=== PATIENT | male | born 1995 | race Caucasian/White ===

== ENCOUNTER 2021-10-13 21:05 | Outpatient (REF) | payer BC, SELFPAY ==
[2021-10-13 22:12] LABS: Abs Immature Grans 0.02 10^3/uL (0.0-0.06); Absolute Basophil Count 0.02 10^3/uL (0.0-0.2); Absolute Eosinophil Count 0.13 10^3/uL (0.0-0.7); Absolute Monocyte Count 1.16 10^3/uL (0.1-0.8); Absolute Neutrophil Count 4.24 10^3/uL (1.2-6.7); Basophils % 0.3; Eosinophils % 2.1; HCT 44.2 % (40.0-50.0); HGB 15.4 g/dL (13.5-17.5); Immature Grans % 0.3; Lymphocytes % 9.7; MCH 30.4 pg (27.0-33.0); MCHC 34.8 % (32.0-36.0); MCV 87.2 fL (80-95); MPV 11.7 fL (8.0-11.0); Monocytes % 18.8; Neutrophils % 68.8; Nucleated RBC 0 %; Platelet Count 192 10^3/uL (130-400); RBC 5.07 10^6/uL (4.36-5.78); RDW 12.1 % (11.8-14.1); RDW-SD 38.6 fL; WBC 6.17 10^3/uL (4.4-10.8)
[2021-10-13 22:25] LABS: ALT 26 U/L (16-63); AST 24 U/L (15-37); Alkaline Phosphatase 85 U/L (46-116); Anion Gap 13.7 mmol/L (3-11); BUN 8 mg/dL (7-18); Bilirubin, Total 0.7 mg/dL (0.2-1.0); CO2 22.3 mmol/L (21.0-32.0); CREATININE 0.9 mg/dL (0.70-1.30); Chloride 99 mmol/L (98-107); Glucose 117 mg/dL (74-106); Sodium 135 mmol/L (136-145); Total Protein 7.3 g/dL (6.4-8.2)
[2021-10-13 22:30] LABS: PROTEIN 43.1 mg/dL (0.0-11.9)
[2021-10-13 22:35] LABS: Bacteria Negative HPF (Negative); C & S Indicated? Yes; Casts Negative LPF (Negative); Crystals Negative HPF (Negative); Epithelial Cells Negative HPF (Negative); Mucus Negative (Negative); Other Cells Negative (Negative); RBC >50 HPF (0-2)
[2021-10-18 12:31] LABS: Anti-DNase B Titer <75 U/mL (0 - 300); Antistrep-O Titer 71 IU/mL (0 - 530)
== END 2021-10-13 21:06 | disposition home or self-care (01) ==
LOC: NCHCN 21:05
PROVIDERS: Visit Provider Nurse Practitioner Family
DX: R50.9 Fever, unspecified (principal); G44.89 Other headache syndrome; R39.9 Unspecified symptoms and signs involving the genitourinary system
CPT/HCPCS: 80053; 81015; 84156; 85025; 86060; 86215; 87086

== ENCOUNTER 2021-10-15 15:24 | Outpatient (REF) | payer BC, SELFPAY ==
[2021-10-15 21:26] LABS: Creatinine,Urine 46.74 mg/dL
[2021-10-15 21:30] LABS: Anion Gap 7.8 mmol/L (3-11); BUN 10 mg/dL (7-18); CO2 28.2 mmol/L (21.0-32.0); CREATININE 0.8 mg/dL (0.70-1.30); Calcium 8.8 mg/dL (8.5-10.1); Chloride 102 mmol/L (98-107); Glucose 109 mg/dL (74-106); Potassium 4.1 mmol/L (3.5-5.1); Sodium 138 mmol/L (136-145)
[2021-10-15 21:36] LABS: COMMENT (LAB VIEW ONLY) 46.54 mg/dL
[2021-10-15 21:39] LABS: Microalb ug/mg Crea 659.9 ug/mg Cr
== END 2021-10-15 15:25 | disposition home or self-care (01) ==
LOC: NCHCN 15:24
PROVIDERS: Visit Provider Family Medicine
DX: R31.0 Gross hematuria (principal); R50.9 Fever, unspecified; R39.9 Unspecified symptoms and signs involving the genitourinary system; G44.89 Other headache syndrome
CPT/HCPCS: 80048; 82043; 82565; 82570

== ENCOUNTER 2021-10-18 17:10 | Outpatient (REF) | payer BC, SELFPAY ==
--- OUTSIDE RECORDS SUMMARY | 2021-10-18 17:12 | XMS_ITS | CCD ---
:1995 Author Care Team Providers Name Role Phone July MENDEZ Attending Physician Unavailable Vital Signs Unknown or Not Available. Allergies Unknown or Not Available. Procedures Unknown or Not Available. History of Immunizations Unknown or Not Available. Problems Unknown or Not Available. Results [facility] COVID RHEONIX* - Collect Date/Julio e: 07/07/2021 10:51 Test Name Code Test Result Test Units Test Ref Range SOURCE= Anterior nasal N/A Tier- SYMPTOMS N/A SARS COV2 RNA: 28098-1 NEGATIVE N/A REFERENCE RAN GE: NEGAT Active Medications Unknown or Not Available. Medications Administered During Visit Unknown or Not Available. Encounters Encounter Diagnosis Diagnosis Code Start Date CONTACT WITH AND SUSPECTED EXPOSURE TO COVID-19 [id number] 07/07/2021 Social History Smoking Status Code Start Date End Date Never smoker [id number] Patient Decision Aids Unknown or Not Available. Discharge Instructions You were admitted to [facility] on 07/07/2021 09:23 with a principal diagnosis of Contact with and (suspected ) exposure to COVID-19 You had the following tests done: [facility] COVID RHEONIX* You were discharged from [facility] on 07/07/2021 09:23 Should you have any questions prior to d ischarge, please contact a member of your healthcare team. If you have left the ho spital and have any questions, please contact your primary care physician. Chief Complaint and Reason For Visit Unknown or Not Available. Function Status Unknown or Not Available. Plan of Care Unknown or Not Available. Referral/Transition of Care Unknown or Not Available.
[2021-10-18 21:44] LABS: Anion Gap 8.2 mmol/L (3-11); BUN 12 mg/dL (7-18); CO2 28.8 mmol/L (21.0-32.0); CREATININE 0.7 mg/dL (0.70-1.30); Calcium 8.7 mg/dL (8.5-10.1); Chloride 102 mmol/L (98-107); Glucose 92 mg/dL (74-106); Sodium 139 mmol/L (136-145)
[2021-10-18 21:48] LABS: Bacteria Negative HPF (Negative); Crystals Negative HPF (Negative); Epithelial Cells Few HPF (Negative); WBC 0-2 HPF (0-5)
[2021-10-18 21:49] LABS: C & S Indicated? No; Casts Negative LPF (Negative); Mucus Trace (Negative)
== END 2021-10-18 17:11 | disposition home or self-care (01) ==
LOC: NCHCN 17:10
PROVIDERS: Visit Provider Family Medicine
DX: G44.89 Other headache syndrome (principal); R31.0 Gross hematuria
CPT/HCPCS: 80048; 81015

== ENCOUNTER 2021-11-03 09:18 | Outpatient (REF) | payer BC, SELFPAY ==
[2021-11-03 16:28] LABS: COMMENT (LAB VIEW ONLY) 27.13 mg/dL; PROTEIN 10.3 mg/dL; Prot/Crea Ur Ratio 0.37
== END 2021-11-03 09:19 | disposition home or self-care (01) ==
LOC: NCHCN 09:18
PROVIDERS: Visit Provider Family Medicine
DX: R31.0 Gross hematuria (principal)
CPT/HCPCS: 82565; 84156

== ENCOUNTER 2021-12-06 08:14 | Outpatient (REF) | payer BC, SELFPAY ==
[2021-12-06 15:59] LABS: Bilirubin Negative (Negative); Blood Small (Negative); Clarity Clear (Clear); Glucose Negative (Negative); Ketones Negative (Negative); Leukocyte Esterase Negative (Negative); Nitrite Negative (Negative); Urobilinogen 0.2 EU/dL (Up TO 0.2); pH 6.5 (5-8)
[2021-12-06 16:58] LABS: PROTEIN < 6.0 mg/dL
[2021-12-06 17:03] LABS: COMMENT (LAB VIEW ONLY) 8.97 mg/dL; COMMENT (LAB VIEW ONLY) 9.73 mg/dL; Microalb ug/mg Crea 116.1 ug/mg Cr
[2021-12-06 17:39] LABS: Bacteria Negative HPF (Negative); C & S Indicated? No; Crystals Negative HPF (Negative); Epithelial Cells Negative HPF (Negative); Mucus Negative (Negative); RBC Negative HPF (0-2); WBC Negative HPF (0-5)
== END 2021-12-06 08:15 | disposition home or self-care (01) ==
LOC: NCHCN 08:14
PROVIDERS: Visit Provider Internal Medicine
DX: R80.9 Proteinuria, unspecified (principal)
CPT/HCPCS: 81003; 81015; 82043; 82565; 82570; 84156

== ENCOUNTER 2023-06-16 15:16 | Outpatient (REF) | payer BC, SELFPAY ==
[2023-06-16 21:27] LABS: RBC >50 HPF (0-2); WBC Negative HPF (0-5)
[2023-06-16 21:28] LABS: Bacteria Negative HPF (Negative); C & S Indicated? C&S Done As Ordered; Casts Negative LPF (Negative); Crystals Negative HPF (Negative); Epithelial Cells Negative HPF (Negative); Mucus Negative (Negative)
[2023-06-16 22:17] LABS: COMMENT (LAB VIEW ONLY) 27.59 mg/dL; PROTEIN 12.3 mg/dL; Prot/Crea Ur Ratio 0.44
== END 2023-06-16 15:17 | disposition home or self-care (01) ==
LOC: NCHCN 15:16
PROVIDERS: Visit Provider Internal Medicine
DX: R31.29 Other microscopic hematuria (principal); R82.89 Other abnormal findings on cytological and histological examination of urine
CPT/HCPCS: 81015; 82565; 84156; 87086